=== PATIENT | female | born 1985 | race American Indian/Alaskan Native ===

== ENCOUNTER 2020-05-08 16:23 | Emergency (ER) | payer SELFPAY ==
--- NOTE | 2020-05-08 16:51 | EDM.PDOCBH ---
ED HPI GENERAL MEDICAL PROBLEM - General Chief Complaint: Drug or Alcohol Abuse Stated Complaint: [employer] Time Seen by Provider: 05/08/20 16:42 Source of Information: Reports: Patient, RN Notes Reviewed, Other ([facility] deputy) - History of Present Illness INITIAL COMMENTS - FREE TEXT/NARRATIVE: 35 yr old female has been brought here by [facility] deputy for medical clearance. Was arrested driving intoxicated up by [place]. She had been fighting with her , jumped in a vehicle and took off driving. Pt is ambulatory upon arrival to ED, very loud, verbal, obviously quite intoxicated. Has been drinking hard liquor. - Related Data Allergies Allergy/AdvReac Type Severity Reaction Status Date / Time No Known Allergies Allergy Verified 05/08/20 16:58 Home Meds: Home Meds . [No Known Home Meds] 05/08/20 [History] ED ROS GENERAL - Review of Systems Review Of Systems: See Below Constitutional: Reports: No Symptoms HEENT: Reports: No Symptoms Respiratory: Reports: No Symptoms Cardiovascular: Reports: No Symptoms GI/Abdominal: Reports: No Symptoms Musculoskeletal: Reports: No Symptoms Skin: Reports: No Symptoms Neurological: Reports: Dizziness. Denies: Trouble Speaking, Difficulty Walking Psychiatric: Reports: No Symptoms ED EXAM, BEHAVIORAL HEALTH - Physical Exam Exam: See Below Exam Limited By: Other (pt very intoxicated, cooperative at time of exam) General Appearance: Alert, No Apparent Distress Head: Atraumatic Neck: Supple Respiratory/Chest: No Respiratory Distress, Lungs Clear, Normal Breath Sounds Cardiovascular: Regular Rate, Rhythm Neurological: Alert, No Motor/Sensory Deficits, Other (ambulatory without difficulty) Skin Exam: Warm, Dry COURSE, BEHAVIORAL HEALTH COMP - Course Vital Signs: Last Vital Signs Temp 97.1 F 05/08/20 16:52 Pulse 65 05/08/20 16:52 Resp 20 05/08/20 16:52 BP 135/94 H 05/08/20 16:52 Pulse Ox 100 05/08/20 16:52 Departure - Departure Time of Disposition: 16:49 Disposition: Home, Self-Care 01 Clinical Impression: Alcohol intoxication Qualifiers: Complication of substance-induced condition: uncomplicated Qualified Code(s): F10.920 - Alcohol use, unspecified with intoxication, uncomplicated - Discharge Information Instructions: Alcohol Intoxication, [id number] Forms: ED Department Discharge Additional Instructions: A medical screening exam has been done. Other than quite severe alcohol intoxication no emergency medical condition is apparent at this time. Sepsis Event Note (ED) - Focused Exam Vital Signs: Vital Signs Temp Pulse Resp BP Pulse Ox 05/08/20 16:52 97.1 F 65 20 135/94 H 100
== END 2020-05-08 17:07 | disposition home or self-care (01) ==
LOC: JD.ED 16:23
DX: F10.120 Alcohol abuse with intoxication, uncomplicated (principal)
CPT/HCPCS: 99282; 99284